=== PATIENT | male | born 1990 | race African-American/Black ===

== ENCOUNTER 2018-04-09 07:35 | Emergency (ER) | payer SELFPAY ==
[2018-04-09 07:49] VITALS: BP 125/79
--- NOTE | 2018-04-09 08:25 | UC ---
Throat Pain/Nasal Olman HPI - HPI Summary HPI Summary: 27 y/o male with nbo prior PMH, no recent ABX use with complaints of sore throat x 3 days, left ear pain x 24 hours. + tob use, no ill contact. + GI symptoms- nausea, no vomiting. no fever, + chills. no neck pain, SOB. tried tylenol, no relief. denies nasal drainage, soreness. no abdominal pains. + pain with swallowing, however able to do so. - History of Current Complaint Chief Complaint: UCGeneralIllness Stated Complaint: SORE THROAT, AND EAR ACHE Time Seen by Provider: 04/09/18 08:12 Hx Obtained From: Patient Onset/Duration: Gradual Onset, Lasting Days Severity: Moderate Pain Intensity: 7 Pain Scale Used: 0-10 Numeric Cough: None Associated Signs & Symptoms: Positive: Hoarseness Related History: Smoking - Allergies/Home Medications Allergies/Adverse Reactions: Allergies Allergy/AdvReac Type Severity Reaction Status Date / Time No Known Allergies Allergy Verified 04/09/18 07:48 Home Medications: Home Medications Acetaminophen [Tylenol Extra Strength] 2 tab PO BID PRN 04/09/18 [History Confirmed 04/09/18] PMH/Surg Hx/FS Hx/Imm Hx Previously Healthy: Yes - Surgical History Surgical History: None - Social History Alcohol Use: Weekly Substance Use Type: None Smoking Status (MU): Heavy Every Day Tobacco Smoker - Immunization History Most Recent Tetanus Shot: Unk Review of Systems Constitutional: Chills, Fatigue ENT: Sore Throat, Ear Ache Cardiovascular: Negative Gastrointestinal: Nausea Genitourinary: Negative Is Patient Immunocompromised?: No All Other Systems Reviewed And Are Negative: Yes Physical Exam Triage Information Reviewed: Yes Appearance: No Pain Distress, Well-Nourished, Ill-Appearing - minimally Vital Signs: Initial Vital Signs Temp 97.4 F 04/09/18 07:45 Pulse 87 04/09/18 07:45 Resp 20 04/09/18 07:45 BP 125/79 04/09/18 07:45 Pulse Ox 98 04/09/18 07:45 Eyes: Positive: Conjunctiva Clear ENT: Positive: Pharyngeal erythema - mild erythema with mild tonsillar enlargement, difficult to examine well due to patients inability to relax tongue. strep Neg. + submand LAD, tender to palpation, no neck stiffness/ pain. no posterior LAD. L ear with cerumen impaction, R TM normal., TMs normal - right, Uvula midline. Negative: Sinus tenderness Dental Exam: Normal Neck: Positive: Enlarged Nodes @ - submand b/l no posterior LAD. Negative: Nuchal Rigidity Respiratory Exam: Normal Abdomen Description: Positive: Nontender, No Organomegaly, Soft. Negative: Splenomegaly Neurological: Positive: Alert Psychological: Positive: Age Appropriate Behavior Skin: Positive: Other - vitiligo Throat Pain/Nasal Course/Dx - Course Course Of Treatment: strep negative, monospot obtained. Conservative treatment , OTCs, motrin, throat lozenges, work note. - Differential Dx/Diagnosis Differential Diagnosis/HQI/PQRI: Pharyngitis Provider Diagnoses: viral pharyngitis, left cerumen impaction Discharge - Sign-Out/Discharge Documenting (check all that apply): Patient Departure All imaging exams completed and their final reports reviewed: Yes - Discharge Plan Condition: Good Disposition: HOME Prescriptions: Dextromethorphan/Benzocaine [Cepacol Sorethroat-Cough Bia] 1 each PO Q4HR #30 lozenge Patient Education Materials: Pharyngitis (ED) Forms: *Work Release Referrals: No Primary Care Phys,NOPCP [Primary Care Provider] - Additional Instructions: - Increase fluid intake - Motrin/ iburpfen as needed for throat pain - humidifier at night to help with symptoms - Go to ER with decreased swallowing, fever > 102, abdominal pain - Avoid contact sports until results of monospot return in 24 hours - Billing Disposition and Condition Condition: GOOD Disposition: Home
== END 2018-04-09 09:05 | disposition home or self-care (01) ==
LOC: UCEAST 07:35
DX: J02.8 Acute pharyngitis due to other specified organisms (principal); H61.22 Impacted cerumen, left ear; F17.200 Nicotine dependence, unspecified, uncomplicated
CPT/HCPCS: 36415; 86308; 86664; 86665; 87651; 99203; G0463

== ENCOUNTER 2018-06-04 17:03 | Emergency (ER) | payer SELFPAY ==
--- NOTE | 2018-06-04 17:39 | ED ---
HPI Chest Pain - HPI Summary HPI Summary: The pt is a 27 y/o male brought in by ambulance to [facility] c/o since 10:50 hrs today. It started on the R side and moved gradually to the L side. The sharp pain rated 4/10 in severity is aggravated by raising his L arm, car motion, laughing and palpation. He notes lightheadedness but denies nausea, SOB, cold sweats and injury. He took Aleve to no relief. The pt reports no pertinent PMHx. His mother aged 63 is still alive. Home Medications Medication Instructions Recorded Confirmed Type Acetaminophen [Acetaminophen Extra 1,000 mg PO BID PRN 06/04/18 06/04/18 History Strength] Dextromethorphan/Benzocaine 1 each PO Q4HR PRN 06/04/18 06/04/18 History [Cepacol Sorethroat-Cough Bia] - History of Current Complaint Chief Complaint: EDChestWallPain Time Seen by Provider: 06/04/18 17:18 Hx Obtained From: Patient Onset/Duration: Started Hours Ago - 10:50 hrs today, Still Present Timing: Intermittent Initial Severity: Mild Current Severity: Mild Pain Intensity: 4 Pain Scale Used: 0-10 Numeric Chest Pain Location: Diffuse - R side Chest Pain Radiates: Yes Chest Pain Radiates To:: Other - To the L side Character: Sharp/Stabbing Aggravating Factor(s): Other: - raising his L arm, bumpy car rides, laughing and palpation. Alleviating Factor(s): Nothing Associated Signs and Symptoms: Positive: Chest Pain, Lightheadedness. Negative : Shortness of Breath, Nausea - Allergy/Home Medications Allergies/Adverse Reactions: Allergies Allergy/AdvReac Type Severity Reaction Status Date / Time No Known Allergies Allergy Verified 04/09/18 07:48 Home Medications: Home Medications Acetaminophen [Acetaminophen Extra Strength] 1,000 mg PO BID PRN 06/04/18 [ History Confirmed 06/04/18] Dextromethorphan/Benzocaine [Cepacol Sorethroat-Cough Bia] 1 each PO Q4HR PRN [History Confirmed 06/04/18] PMH/Surg Hx/FS Hx/Imm Hx Previously Healthy: Yes Endocrine/Hematology History: Denies: Hx Diabetes Cardiovascular History: Denies: Hx Hypercholesterolemia, Hx Hypertension Respiratory History: Reports: Other Respiratory Problems/Disorders - Pharyngitis Sensory History: Denies: Hx Deafness - Cancer History Cancer Type, Location and Year: None reported - Surgical History Surgery Procedure, Year, and Place: None reported Infectious Disease History: No Infectious Disease History: Denies: Traveled Outside the [place] in Last 30 Days - Family History Known Family History: Negative: Cardiac Disease, Hypertension, Diabetes - Social History Occupation: Employed Full-time Lives: Dormitory/Roommates - Significant other Alcohol Use: Weekly Substance Use Type: Reports: None Hx Tobacco Use: Yes Smoking Status (MU): Heavy Every Day Tobacco Smoker Review of Systems Constitutional: Other - Positive: Lightheadedness Negative: Skin Diaphoresis Positive: Chest Pain Negative: Shortness Of Breath Negative: Nausea Musculoskeletal: Negative - Injury All Other Systems Reviewed And Are Negative: Yes Physical Exam - Summary Physical Exam Summary: Appearance: The patient is well-nourished in no acute distress and in no acute pain. Skin: The skin is warm and dry and skin color reflects adequate perfusion. HEENT: The head is normocephalic and atraumatic. The pupils are equal and reactive. The conjunctivae are clear and without drainage. Nares are patent and without drainage. Mouth reveals moist mucous membranes and the throat is without erythema and exudate. The external ears are intact. The ear canals are patent and without drainage. The tympanic membranes are intact. Neck: The neck is supple with full range of motion and non-tender. There are no carotid bruits. There is no neck vein distension. Respiratory: Chest is tender to palpation in the sternum. Lungs are clear to auscultation and breath sounds are symmetrical and equal. Cardiovascular: Heart is regular rate and rhythm. There is no murmur or rub auscultated. There is no peripheral edema and pulses are symmetrical and equal. Abdomen: The abdomen is soft and non-tender. There are normal bowel sounds heard in all four quadrants and there is no organomegaly palpated. Musculoskeletal: There is no back tenderness noted. Extremities are non-tender with full range of motion. There is good capillary refill. There is no peripheral edema or calf tenderness elicited. Neurological: Patient is alert and oriented to person, place and time. The patient has symmetrical motor strength in all four extremities. Cranial nerves are grossly intact. Deep tendon reflexes are symmetrical and equal in all four extremities. Psychiatric: The patient has an appropriate affect and does not exhibit any anxiety or depression. Triage Information Reviewed: Yes Vital Signs On Initial Exam: Initial Vitals Temp Pulse Resp BP Pulse Ox 98.2 F 90 16 123/85 98 06/04/18 17:09 06/04/18 17:09 06/04/18 17:09 06/04/18 17:09 06/04/18 17:09 Vital Signs Reviewed: Yes Diagnostics - Vital Signs Vital Signs Temp Pulse Resp BP Pulse Ox 06/04/18 17:19 86 06/04/18 17:10 81 98 06/04/18 17:09 98.2 F 86 16 123/85 98 - Laboratory Result Diagrams: 06/04/18 17:59 06/04/18 17:59 Lab Statement: Any lab studies that have been ordered have been reviewed, and results considered in the medical decision making process. - Radiology CXR Radiology Interpretation Completed By: Radiologist - IMPRESSION: #. No evidence for acute intrathoracic disease. The ED physician reviewed this radiology report. - EKG 17:08 Cardiac Rate: NL - 80 bpm EKG Rhythm: Sinus Rhythm ST Segment: Normal Ectopy: None EKG Comparison: No Significant Change Chest Pain Course/Dx - Course Course Of Treatment: Mr. Andre presented with an atypical chest pain that originated in the back. He was nontoxic in appearance with stable vital signs on presentation. He was kept on the monitor while EKG, chest x-ray and labs including d-dimer and delayed troponin were obtained. These were all negative and I reassured him that nothing dangerous was happening and recommended nonsteroidal anti-inflammatories. - Diagnoses Provider Diagnoses: Chest pain Discharge - Sign-Out/Discharge Documenting (check all that apply): Patient Departure - DC - Discharge Plan Condition: Stable Disposition: HOME Patient Education Materials: Chest Pain (ED) Referrals: [facility] [Outside] Additional Instructions: Take Naproxen(Aleve) as needed. Follow up with your PCP in 2 days Return to ED for any new or worsening symptoms - Billing Disposition and Condition Condition: STABLE Disposition: Home - Attestation Statements Document Initiated by Scribe: Yes Documenting Scribe: Machelle Ritchie Provider For Whom Scribe is Documenting (Include Credential): Dr. Chris Garcia MD Scribe Attestation: Machelle Cabrera , scribed for Dr. Chris Garcia MD on 06/04/18 at 2132. Scribe Documentation Reviewed: Yes Provider Attestation: The documentation as recorded by the scribe, Machelle Ritchie accurately reflects the service I personally performed and the decisions made by me, Dr. Chris Garcia MD
[2018-06-04 18:11] LABS: Hematocrit 41 % (42-52); Mean Corpuscular HGB Conc 34 g/dl (31-36); Mean Corpuscular Hemoglobin 31 pg (27-31); Mean Corpuscular Volume 90 fL (80-94); Mean Platelet Volume 7.1 fL (7.4-10.4); Platelet Count 255 10^3/ul (150-450); Red Blood Count 4.59 10^6/ul (4.00-5.40); Red Cell Distribution Width 13 % (10.5-15); White Blood Count 4.5 10^3/ul (3.5-10.8)
[2018-06-04 18:44] LABS: ABS Basophils 0 10^3/ul (0-0.2); ABS Eosinophils 0 10^3/ul (0-0.6); ABS Lymphocytes 2.2 10^3/ul (1.0-4.8); ABS Monocytes 0.4 10^3/ul (0-0.8); ABS Neutrophils 1.8 10^3/ul (1.5-7.7); ABS Nucleated RBC 0 10^3/ul; Eosinophil % 0.6 %; Lymphocyte % 49.4 %; Nucleated Red Blood Cells % 0.2
[2018-06-04 20:51] VITALS: BP 113/71
== END 2018-06-04 21:54 | disposition home or self-care (01) ==
LOC: ED 17:03
DX: R07.89 Other chest pain (principal); R42 Dizziness and giddiness; F17.200 Nicotine dependence, unspecified, uncomplicated
CPT/HCPCS: 36415; 71046; 80053; 83605; 84484; 85025; 85379; 93005; 99284

== ENCOUNTER 2019-04-24 12:04 | Emergency (ER) | payer SELFPAY ==
[2019-04-24 12:14] VITALS: BP 118/77
--- NOTE | 2019-04-24 13:58 | UC ---
Ear Complaint HPI - HPI Summary HPI Summary: Patient has had cold symptoms over the past week with sore throat over the past couple days and left earache. He denies any fever or chills. - History of Current Complaint Chief Complaint: UCGeneralIllness Stated Complaint: SORE THROAT Time Seen by Provider: 04/24/19 13:32 Onset/Duration: Gradual Onset Severity Initially: Mild Severity Currently: Mild Pain Intensity: 6 Aggravating Factors: Nothing Associated Signs/Symptoms: Positive: URI Symptoms - Allergies/Home Medications Allergies/Adverse Reactions: Allergies Allergy/AdvReac Type Severity Reaction Status Date / Time No Known Allergies Allergy Verified 04/24/19 12:10 PMH/Surg Hx/FS Hx/Imm Hx Previously Healthy: Yes - Surgical History Surgical History: None Surgery Procedure, Year, and Place: None reported - Family History Known Family History: Negative: Cardiac Disease, Hypertension, Diabetes - Social History Alcohol Use: Occasionally Substance Use Type: None Smoking Status (MU): Heavy Every Day Tobacco Smoker Amount Used/How Often: 1/2 PPD Household Exposure Type: Cigarettes - Immunization History Most Recent Tetanus Shot: Unk Review of Systems All Other Systems Reviewed And Are Negative: Yes ENT: Positive: Sore Throat, Ear Ache, Nasal Discharge Is Patient Immunocompromised?: No Physical Exam Triage Information Reviewed: Yes Appearance: Well-Appearing, No Pain Distress, Well-Nourished Vital Signs: Initial Vital Signs Temp 98.8 F 04/24/19 12:10 Pulse 92 04/24/19 12:10 Resp 18 04/24/19 12:10 BP 118/77 04/24/19 12:10 Pulse Ox 100 04/24/19 12:10 Vital Signs Reviewed: Yes Eyes: Positive: Conjunctiva Clear ENT: Positive: Pharynx normal, Nasal congestion, Nasal drainage - Clear nasal coryza., TM red - Left tympanic membrane is injected and mildly bulging with yellow purulence behind the tympanic membrane., Uvula midline. Negative: Tonsillar swelling, Tonsillar exudate, Trismus, Muffled voice, Hoarse voice Neck: Positive: Supple, Nontender, Enlarged Nodes @ - Bilateral tonsillar lymph node enlargement. Respiratory: Positive: Lungs clear, Normal breath sounds, No respiratory distress, No accessory muscle use Abdomen Description: Positive: Nontender, No Organomegaly, Soft. Negative: CVA Tenderness (R), CVA Tenderness (L), Hepatomegaly, Splenomegaly Bowel Sounds: Positive: Present Musculoskeletal Exam: Normal Neurological Exam: Normal Psychological Exam: Normal Skin Exam: Normal Ear Complaint Course/Dx - Course Course Of Treatment: Patient is comfortable here. Rapid strep test was negative. I am going to treated for a left otitis media with amoxicillin 875 mg by mouth twice a day 10 days. He is to follow-up with [facility] if any concerns or if no improvement in 3 or 4 days. - Differential Dx/Diagnosis Provider Diagnosis: Pharyngitis, Left otitis media Discharge ED - Sign-Out/Discharge Documenting (check all that apply): Patient Departure All imaging exams completed and their final reports reviewed: No Studies - Discharge Plan Condition: Good Disposition: HOME Prescriptions: Amoxicillin PO (*) [Amoxicillin 875 MG (*)] 875 mg PO BID 10 Days #20 tab Patient Education Materials: Ear Infection (ED) Referrals: No Primary Care Phys,NOPCP [Primary Care Provider] - [facility] [Outside] Additional Instructions: Increase fluids, may take Tylenol every 4 hours and ibuprofen every 8 hours for pain or fever. Follow-up at [facility] if no improvement in 3 or 4 days. - Billing Disposition and Condition Condition: GOOD Disposition: Home
== END 2019-04-24 13:58 | disposition home or self-care (01) ==
LOC: UCEAST 12:04
DX: J02.9 Acute pharyngitis, unspecified (principal); H66.92 Otitis media, unspecified, left ear; F17.210 Nicotine dependence, cigarettes, uncomplicated
CPT/HCPCS: 87651; 99212; G0463

== ENCOUNTER 2019-09-21 11:43 | Emergency (ER) | payer OTHER ==
[2019-09-21 12:02] VITALS: BP 118/81
--- NOTE | 2019-09-21 12:41 | UC ---
Complaint Male HPI - HPI Summary HPI Summary: 28 yo male presents with urinary complaint. He tells me that 2 days ago he had unprotected sex with a new female partner. Last night noticed burning with urination that has persisted into today. He is urinating without difficulty. Denies fever, chills, abdominal pain, n/v, blood in urine, flank pain. He states he has had an STD before and this doesn't feel quite the same. Denies testicular pain or rashes. - History of Current Complaint Chief Complaint: UCGU Stated Complaint: URINARY ISSUE Time Seen by Provider: 09/21/19 12:40 Hx Obtained From: Patient Onset/Duration: Sudden Onset Severity Initially: Mild Severity Currently: Mild Pain Intensity: 4 Pain Scale Used: 0-10 Numeric - Allergies/Home Medications Allergies/Adverse Reactions: Allergies Allergy/AdvReac Type Severity Reaction Status Date / Time No Known Allergies Allergy Verified 09/21/19 12:02 Home Medications: Home Medications NK [No Home Medications Reported] 09/21/19 [History Confirmed 09/21/19] PMH/Surg Hx/FS Hx/Imm Hx - Additional Past Medical History Additional PMH: None - Surgical History Surgical History: None Surgery Procedure, Year, and Place: None reported - Family History Known Family History: Negative: Cardiac Disease, Hypertension, Diabetes - Social History Lives: With Family Alcohol Use: Occasionally Substance Use Type: None Smoking Status (MU): Heavy Every Day Tobacco Smoker Amount Used/How Often: 1/2 PPD Household Exposure Type: Cigarettes - Immunization History Most Recent Tetanus Shot: Unk Review of Systems All Other Systems Reviewed And Are Negative: No Constitutional: Positive: Negative Skin: Positive: Negative Respiratory: Positive: Negative Cardiovascular: Positive: Negative Gastrointestinal: Positive: Negative Genitourinary: Positive: Dysuria Neurological/Mental Status: Positive: Negative Psychological: Positive: Negative Physical Exam - Summary Physical Exam Summary: GENERAL: NAD. WDWN. No pain distress. SKIN: No rashes, sores, lesions, or open wounds. NECK: Supple. Nontender. No lymphadenopathy. CHEST: CTAB. No r/r/w. No accessory muscle use. Breathing comfortably and in no distress. CV: RRR. Pulses intact. Cap refill <2seconds ABDOMEN: Soft. NTTP. No distention or guarding. No CVA tenderness. Bowel sounds present NEURO: Alert. PSYCH: Age appropriate behavior. Triage Information Reviewed: Yes Vital Signs: Initial Vital Signs Temp 98.8 F 09/21/19 12:00 Pulse 89 09/21/19 12:00 Resp 18 09/21/19 12:00 BP 118/81 09/21/19 12:00 Pulse Ox 100 09/21/19 12:00 Laboratory Tests 09/21/19 12:42 POC Urine Color Lin POC Urine Clarity Clear POC Urine pH 6.5 POC Ur Specif [place] 1.020 POC Urine Protein Trace A POC Ur Glucose (UA) Negative POC Urine Ketones Negative POC Urine Blood 2+ A POC Urine Nitrite Negative POC Urine Bilirubin Negative POC Urine Urobilinogen 1.0 POC U Leukocyte Esteras Negative Vital Signs Reviewed: Yes Male Genital Exam: Positive: Normal Genitalia. Negative: Epididymal Tenderness , Inguinal Tenderness, Lesions, Scrotum Tenderness (R), Scrotum Tenderness (L), Testicular Tenderness (R), Testicular Tenderness (L), Urethral Discharge Complaint Male Course/Dx - Course Course Of Treatment: UA as above. Suspect urethritis. He is not having any flank pain and has no hx of kidney stones - thus low suspicion today. Urine will be sent for urine culture and GC/C. Treated today with 1gm of azithromycin and 250mg ceftriaxone. Will adjust future treatment based on culture results and symptomatic improvement. - Differential Dx/Diagnosis Provider Diagnosis: Urethritis Discharge ED - Sign-Out/Discharge Documenting (check all that apply): Patient Departure All imaging exams completed and their final reports reviewed: No Studies - Discharge Plan Condition: Stable Disposition: HOME Patient Education Materials: Nonspecific Urethritis in Men (ED) Referrals: No Primary Care Phys,NOPCP [Primary Care Provider] - Additional Instructions: If you develop a fever, shortness of breath, chest pain, new or worsening symptoms - please call your PCP or go to the ED immediately. Please refrain from sexual activity for 7 days from the date your symptoms resolve. Urine was sent for further testing today - Billing Disposition and Condition Condition: STABLE Disposition: Home
[2019-09-21] MEDS ORDERED: cefTRIAXone VIAL(*) 250 MG VIAL IM ONE (12:58)
[2019-09-21] MEDS ORDERED: Lidocaine 1% MPF ** 5 ML VIAL IM ONE (12:58)
[2019-09-21] MEDS ORDERED: Azithromycin TAB* 250 MG PO ONE (12:58)
--- NOTE | 2019-09-22 18:49 | UC ---
- Progress Note Progress Note: 09/22/2019 Urine culture negative. Pt DX w/ urethritis and still awaiting for GC/Chlamydia results. No change Roxie Griffin PA-C Course/Dx - Diagnoses Provider Diagnoses: Urethritis Discharge ED - Sign-Out/Discharge Documenting (check all that apply): Patient Departure - D/C home All imaging exams completed and their final reports reviewed: No Studies - Discharge Plan Condition: Stable Disposition: HOME Patient Education Materials: Nonspecific Urethritis in Men (ED) Referrals: No Primary Care Phys,NOPCP [Primary Care Provider] - Additional Instructions: If you develop a fever, shortness of breath, chest pain, new or worsening symptoms - please call your PCP or go to the ED immediately. Please refrain from sexual activity for 7 days from the date your symptoms resolve. Urine was sent for further testing today - Billing Disposition and Condition Condition: STABLE Disposition: Home
[2019-09-23 13:14] LABS: Chlamydia trachomatis NAA Negative (Negative); Neisseria gonorrhoeae (GC) NAA Negative (Negative)
== END 2019-09-21 14:37 | disposition home or self-care (01) ==
LOC: UCEAST 11:43
DX: N34.2 Other urethritis (principal); F17.210 Nicotine dependence, cigarettes, uncomplicated
CPT/HCPCS: 81003; 87086; 87491; 87591; 96372; 99212; A9270-GY; G0463; J0696